=== PATIENT | female | born 1955 | race Hispanic/Latino ===

== ENCOUNTER 2021-09-22 11:21 | Outpatient (CLI) | payer MEDICARE, OTHER ==
--- NOTE | 2021-09-22 13:31 | Magnetic Resonance Report ---
MRI RIGHT SHOULDER WITHOUT CONTRAST INDICATION / CLINICAL INFORMATION: M25.511. Right shoulder pain TECHNIQUE: Multiplanar, multisequence MR images were obtained. No contrast used. COMPARISON: None available. FINDINGS: ACROMION and A.C. JOINT: No significant abnormality. SUBACROMIAL/SUBDELTOID SPACE: There is trace fluid in the subdeltoid/subacromial bursa. SUPRASPINATUS: Tendinosis. INFRASPINATUS: Tendinosis. SUBSCAPULARIS: No significant abnormality. BICEPS TENDON, LONG HEAD: No significant abnormality. GLENOID LABRUM: There is diffuse truncation of the labrum which may be degenerative. ARTICULAR CARTILAGE: Mild thinning. JOINT SPACE AND CAPSULE: No significant abnormality. BONES: No significant bone marrow edema. No fracture. No osseous lesion. SOFT TISSUES: No significant abnormality. ADDITIONAL FINDINGS: None. IMPRESSION: 1. Cuff tendinosis with trace subdeltoid/subacromial bursal fluid. No significant AC degenerative shannon nge or rotator cuff tendon tear. 2. Degenerative fraying of the glenoid labrum with mild diffuse cartilage thinning suggestive of avni y DJD. Signer Name: Eduard Rubio MD Signed: 09/22/2021 1:27 PM Workstation Name: [id number]
== END 2021-09-22 11:22 | disposition home or self-care (01) ==
LOC: MRI 11:21
PROVIDERS: ATTEND Orthopaedic Surgery
DX: M25.511 Pain in right shoulder (principal); M77.8 Other enthesopathies, not elsewhere classified